=== PATIENT | male | born 1950 | race Two or more races ===

== ENCOUNTER 2017-10-23 09:04 | Outpatient (CLI) | payer OTHER | END 2017-10-23 09:11 | disposition home or self-care (01) | LOC: SONOGRAMA 09:04 | DX: E04.1 Nontoxic single thyroid nodule (principal) ==

== ENCOUNTER 2018-12-17 08:31 | Outpatient (CLI) | payer OTHER | END 2018-12-17 08:33 | disposition home or self-care (01) | LOC: SONOGRAMA 08:31 | DX: E04.1 Nontoxic single thyroid nodule (principal) ==